=== PATIENT | male | born 1995 | race Caucasian/White ===

== ENCOUNTER 2024-11-07 15:26 | Emergency (ER) | payer OTHER, SELFPAY ==
[2024-11-07 15:31] VITALS: BP 120/80; PULSE 68; RESP 16; TEMP 37.1; O2SAT 98; BMI 32.6
--- NOTE | 2024-11-07 16:08 | CRLHL7_ITS ---
For Patients: As a result of the Cures Act, medical imaging exams and procedure reports are released immediately into your electronic medical record. You may view this report before your referring provider. If you have questions, please contact your health care provider. INDICATION: Injury/trauma TECHNIQUE: Two views of the right forearm COMPARISON: None. FINDINGS: No acute fracture or dislocation. Joint spaces are normal-appearing. IMPRESSION: No acute osseous abnormality. Dictated by Maurizio Gutierrez MD @ 11/07/2024 4:33:07 PM (Electronically Signed)
--- NOTE | 2024-11-07 16:09 | CRLHL7_ITS ---
For Patients: As a result of the Cures Act, medical imaging exams and procedure reports are released immediately into your electronic medical record. You may view this report before your referring provider. If you have questions, please contact your health care provider. INDICATION: Fall. Moderate injury. TECHNIQUE: CT of the cervical spine without contrast. Coronal and sagittal reformats are included. COMPARISON: None. FINDINGS: Fractures and other acute findings: None. Hardware: None. Spinal alignment: Within normal limits. Significant cervical spondylosis: Within normal limits. Paraspinal soft tissues and imaged lungs: Within normal limits. IMPRESSION: 1. No acute fracture or traumatic malalignment of the cervical spine. Please note that all CT scans at this facility use dose modulation, iterative reconstruction, and/or weight-based dosing when appropriate to reduce radiation dose to as low as reasonably achievable. Dictated by Segundo Lancaster MD @ 11/07/2024 4:26:42 PM (Electronically Signed)
--- OUTSIDE RECORDS SUMMARY | 2024-11-07 16:30 | XMS_ITS | Clinical Summary ---
Author Organization [facility] Address [address] [place] [id number] Care Team Providers Care Suede Cleaner Name Role Phone Pcp, No Primary Care Provider Unavailabl e Allergies No known active allergies Medications imiquimod (ALDARA) 5 % creamIndication s:Genital warts Apply 1 Packet topically to affected area(s) every Monday, Monday and Monday. Apply at bedtime and leave on skin for 8 hrs. Use up to 16w 12 Packet 3 Active Active Problems No known active problems Social History Tobacco Use Types Packs/Day Years Used Date Smoking Tobacco: Never Passive Smoke Exposure: Never Smokeless Tobacco: Never Tobacco Cessation:Counseling Given: Not Answered Alcohol Use Standard Drinks/Week Comments Yes 0 (1 standard drink = 0.6 oz pur e alcohol) occasional Social Connections Answer Date Recorded Do you often feel lonely or isolated from those around you? 0 03/26/2024 Financial Resource Strain Answer Date R ecorded Difficulty of Paying Living Expenses 3 03/26/2024 Difficulty of Paying Living Expenses Not on file 03/26/2024 Food Insecurity Answer Date Recorded Do you worry your food will run out before you are able to buy more? 1 03/26/2024 Transportation Needs Answer Date Record ed Does lack of transportation keep you from medica l appointments? 1 03/26/2024 Does lack of transportation keep you from work, meetings or getting things that you need? 1 03/26/2024 Housing Stability Answer Date Recorded What is your housing situation today? 1 03/26/2024 Utilities Answer Date Recorded Do you have trouble paying f or utilities (for example, heat, electricity, water, phone)? 1 03/26/2024 Sex and Gender Information Value Date Recorded Sex Assigned at Not on file Legal Sex Male 12:54 PM DERMATOLOGY SALES REPRESENTATIVE Gender Identity Not on file Sexual Orientation Not on file Obstetrics History Last Filed Vital Signs Vital Sign Reading Time Taken Comments Blood Pressure 118/82 03/26/2024 2:09 PM DERMATOLOGY SALES REPRESENTATIVE Pulse 63 03/26/2024 2:09 PM DERMATOLOGY SALES REPRESENTATIVE Temperature - - Respiratory Rate - - Oxygen Saturation 98% 03/26/2024 2:09 PM DERMATOLOGY SALES REPRESENTATIVE Inhaled Oxygen Concentration - - Weight 91.2 kg (201 lb 1.6 oz) 03/26/2024 2:09 P M DERMATOLOGY SALES REPRESENTATIVE Height 171 cm (5' 7.32) 03/26/2024 2:09 PM DERMATOLOGY SALES REPRESENTATIVE Body Mass Index 31.2 03/26/2024 2:09 PM DERMATOLOGY SALES REPRESENTATIVE Plan of Treatment Health Maintenance Due Date Last Done Comments Tetanus booster 08/30/2006 Depression screening for age 12+ 2007 Hepatitis B series for 19+ ( 1 of 3 - 19+ 3-dose series) 08/30/2014 HPV series for age 9-45 (1 - 3-dose SCDM series) 08/30/2022 COVID-19 vaccine series () 10/21/2024 Influenza Vaccine (#1) 2024 BMI (ht and wt on same day) for age 18+ 03/26/2025 03/26/2024 RSV vaccine for adults or (1 - 1-dose 75+ series) 08/30/2070 HIV for age 15-65 Completed 03/26/2024 Hepatitis C screening for ag e 18-79 Completed 03/26/2024 Pneumococcal series for age 6-49 Aged Out No longer eligible based on patient's age to complete this topic Procedures Procedure Name Priority Date/Time Associated Diagnosis Comments ANTI HIV 1/2 Routine 03/26/2024 2:27 PM DERMATOLOGY SALES REPRESENTATIVE Screen for STD (sexually transmitted disease) ANTI HCV Routine 03/26/2024 2:27 PM DERMATOLOGY SALES REPRESENTATIVE Screen for STD (sexually transmitted disease) from Last 3 Months or Most Recently Relevant to Health Maintenance Results * ANTI HCV [70855.2] (03/26/2024 2:27 PM DERMATOLOGY SALES REPRESENTATIVE) HEPATITIS C ANTIBODY NON-REACTI VE NON-REACT K[facility] Comment: HCV antibody was non-reactive. There is no laboratory evidence of HCV infection. In most cases, no further action is required. However, if recent HCV exposure is suspected, a test for HCV RNA (test code 18220) is suggested. For additional information please refer to http://[facility]/faq/DMW23u5 (This link is being provided for informational/ educational purposes only.) Blood BLOOD SPECIMEN / Unknown 03/26/2024 2:27 PM DERMATOLOGY SALES REPRESENTATIVE 03/26/2024 2:28 PM DERMATOLOGY SALES REPRESENTATIVE Sherry Reyna MD SEND OUTS Final R esult [employer] [facility] [address] [place] [address], [facility] [address] [place] [address] * ANTI HIV 1/2 [94663.0] (03/26/2024 2:27 PM DERMATOLOGY SALES REPRESENTATIVE) [facility] HIV AG/AB, 4TH GEN NON-REACT KOKO NON-REACT KOKO [facility] Comment: HIV-1 antigen and HIV-1/HIV-2 antibodies were not detected. There is no laboratory evidence of HIV infection. PLEASE NOTE: This information has been disclosed to you from records whose confidentiality may be protected by state law. If your state requires such protection, then the state law prohibits you from making any further disclosure of the information without the specific written consent of the person to whom it pertains, or as otherwise permitted by law. A general authorization for the release of medical or other information is NOT sufficient for this purpose. For additional information please refer to http://[facility]/faq/CWV498 (This link is being provided for informational/ educational purposes only.) The performance of this assay has not been clinically validated in patients less than 2 years old. Blood BLOOD SPECIMEN / Unknown 03/26/2024 2:27 PM DERMATOLOGY SALES REPRESENTATIVE 03/26/2024 2:28 PM DERMATOLOGY SALES REPRESENTATIVE Sherry Reyna MD SEND OUTS Final R esult [employer] [address] [place] [address], [facility] [address] [place] [address] from Last 3 Months or Most Recently Relevant to Health Maintenance Care Teams Suede Cleaner Relationship Specialty Start Date End Date Pcp, No . PCP - General 03/26/24
--- NOTE | 2024-11-07 17:17 | ED.GENADULT ---
HPI - General Adult General Date Seen: 11/07/24 Chief complaint: Neck Injury/Pain Stated complaint: Neck, shoulder injury--ladder fell Time Seen by Provider: 11/07/24 16:08 History of Present Illness HPI narrative: patient is a 29-year-old here with a friend after an injury at work. He does not speak Uzbek but his friend speaks very well and they declined an event marketing assistant. She is helping with communication. He had of 40 ft ladder fall on him at work, this landed on his neck and back and he has some pain in the right side of his neck. He also hurt his arm trying to block the ladder and has pain kind of and the entire arm but mostly in the forearm. There is some swelling there as well. No loss of consciousness or other complaints. No numbness or loss of function. Related Data Home Medications ?Medication ?Instructions ?Recorded ?Confirmed No Known Home Medications 11/07/24 11/07/24 Allergies Allergy/AdvReac Type Severity Reaction Status Date / Time No Known Drug Allergies Allergy Verified 11/07/24 15:30 Review of Systems Status of ROS: Reports: 6 or more systems reviewed and unremarkable except as noted in History and below Exam Narrative: Exam Narrative: Vital signs normal In general, alert, well-appearing young man. He has a cervical collar in place. Head: Normocephalic, atraumatic. ENT: No facial trauma. Neck: No midline tenderness. He has tenderness in the musculature all along the right side into the trapezius. Heart: Regular rate and rhythm. No chest trauma. Lungs: Clear, breath sounds equal. Extremities: Examination of the right upper extremity shows bruising and a mild hematoma over the forearm, tenderness in this area. No bony deformity, no tenderness of the wrist or elbow. Distal CMS intact. Skin: Warm dry well perfused. Neurologic: He is alert, conversant, ambulatory without difficulty. Strength is 5 of 5 in bilateral upper and lower extremities. Sensation intact to light touch. Const: Vital Signs, click to edit/add: Vital Signs - 24 hr 11/07/24 15:31 Temperature 98.8 F Pulse Rate [Pulse Oximeter] 68 Respiratory Rate 16 Blood Pressure [Le ft Upper Arm] 120/80 Pulse Oximetry 98 Oxygen Delivery Me thod Room Air Course Course ED Course: Patient had 50 mg of IV Toradol for pain control. He had a CT scan of the cervical spine. Radiology read is reviewed. They note no acute findings such as fracture dislocation. I reviewed his forearm x-rays, these with negative for fracture to me and Radiology likewise read some negative. I removed the collar, he does not have any midline tenderness and I think injuries are soft tissue. No concerning neurologic findings. Will prescribed Toradol and Flexeril for home, I gave him the next few days off of work. Reviewed that he should be improving over the next week or so and if not should be seen again. discussed with primary care if he feels he needs more time off of work. Return any time for acute worsening or new symptoms. Vital Signs Vital signs: Initial Vital Signs Temperature 98.8 F 11/07/24 15:31 Temperature Source Temporal Artery Scan 11/07/24 15:31 Pulse Rate 68 11/07/24 15:31 Respiratory Rate 16 11/07/24 15:31 Blood Pressure 120/80 11/07/24 15:31 Blood Pressure Mean 93 11/07/24 15:31 Blood Pressure Position Sitting 11/07/24 15:31 Pulse Oximetry 98 11/07/24 15:31 Oxygen Delivery Method Room Air 11/07/24 15:31 Vital Signs Temperature 98.8 F 11/07/24 15:31 Pulse Rate 68 11/07/24 15:31 Respiratory Rate 16 11/07/24 15:31 Blood Pressure 120/80 11/07/24 15:31 Pulse Oximetry 98 11/07/24 15:31 Oxygen Delivery Method Room Air 11/07/24 15:31 Temperature 98.8 F 11/07/24 15:31 Pulse Rate 68 11/07/24 15:31 Respiratory Rate 16 11/07/24 15:31 Blood Pressure 120/80 11/07/24 15:31 Pulse Oximetry 98 11/07/24 15:31 Oxygen Delivery Method Room Air 11/07/24 15:31 Medications Administered Medications: Discontinued Medications Generic Name Dose Route Start Last Admin Trade Name Freq PRN Reason Stop Dose Admin Ketorolac Tromethamine 15 mg 11/07/24 16:08 11/07/24 16:46 Ketorolac 15 Mg/Ml Inj IVP 11/07/24 16:09 15 mg ONCE ONE Administration Medical Decision Making Imaging Data Cervical CT: Attestation: I have reviewed the pertinent imaging results. Radiologist's impression: Patient: Omar العلي MR#: [id number] : 1995 Acct:[id number] Loc: ED Service Date: 11/07/24 Attending : Ordering Physician: Hazel Roman M.D. Date of Service: 11/07/24 Procedure(s): CT cervical spine wo con Accession Number(s): [id number] cc: Hazel Roman M.D.~ For Patients: As a result of the Cures Act, medical imaging exams and procedure reports are released immediately into your electronic medical record. You may view this report before your referring provider. If you have questions, please contact your health care provider. INDICATION: Fall. Moderate injury. TECHNIQUE: CT of the cervical spine without contrast. Coronal and sagittal reformats are included. COMPARISON: None. FINDINGS: Fractures and other acute findings: None. Hardware: None. Spinal alignment: Within normal limits. Significant cervical spondylosis: Within normal limits. Paraspinal soft tissues and imaged lungs: Within normal limits. IMPRESSION: 1. No acute fracture or traumatic malalignment of the cervical spine. Please note that all CT scans at this facility use dose modulation, iterative reconstruction, and/or weight-based dosing when appropriate to reduce radiation dose to as low as reasonably achievable. Dictated by Segundo Lancaster MD @ 11/07/2024 4:26:42 PM right forearm x-ray: Attestation: I have reviewed the pertinent imaging results. Radiologist's impression: Patient: Omar العلي MR#: [id number] : 1995 Acct:[id number] Loc: ED Service Date: 11/07/24 Attending : Ordering Physician: Hazel Roman M.D. Date of Service: 11/07/24 Procedure(s): XR forearm RT 2V Accession Number(s): [id number] cc: Hazel Roman M.D.; Provider,Not a Local~ For Patients: As a result of the s Act, medical imaging exams and procedure reports are released immediately into your electronic medical record. You may view this report before your referring provider. If you have questions, please contact your health care provider. INDICATION: Injury/trauma TECHNIQUE: Two views of the right forearm COMPARISON: None. FINDINGS: No acute fracture or dislocation. Joint spaces are normal-appearing. IMPRESSION: No acute osseous abnormality. Dictated by Maurizio Gutierrez MD @ 11/07/2024 4:33:07 PM Discharge Plan Discharge Clinical Impression: Strain of neck muscle, Contusion of forearm, right Patient Disposition: Home, Self-Care Condition: Improved Instructions: Contusion in Adults (ED), Cervical Sprain (ED) Additional Instructions: Toradol as needed over the next few days. You can use a muscle relaxer particularly at night. Ice liberally over the next couple days to help with swelling and pain. You should be improving over the next week, if not you should be seen by primary care. Will have you off of work until Monday. If you feel at that time you are not able to return to work safely, please discuss with primary care. Prescriptions: No Action No Known Home Medications Follow Up/Referrals: Provider,Not a Local [Primary Care Provider, Family Practice] Stand Alone Forms: MyHealth Info Instructions
[2024-11-07 17:27] VITALS: BP 120/75; PULSE 56; RESP 16; O2SAT 97
== END 2024-11-07 17:37 | disposition home or self-care (01) ==
PROVIDERS: Emergency Provider Emergency Medicine
DX: S16.1XXA Strain of muscle, fascia and tendon at neck level, initial encounter (principal); S50.11XA Contusion of right forearm, initial encounter; W11.XXXA Fall on and from ladder, initial encounter; Y99.0 Civilian activity done for income or pay
CPT/HCPCS: 72125; 73090; 96374; 99284; J1885

== ENCOUNTER 2025-01-14 16:03 | Emergency (ER) | payer OTHER, SELFPAY ==
--- OUTSIDE RECORDS SUMMARY | 2025-01-14 16:05 | XMS_ITS | Clinical Summary ---
Author Organization [facility] Address [address] [place] [address] Care Team Providers Care Speech Therapy Assistant Name Role Phone Pcp, No Primary Care [...] on file Legal Sex Male 12:54 PM BINDER ROLLER Gender Identity Not on file Sexual Orientation Not on file Obstetrics History Last Filed Vital Signs Vital Sign Reading Time Taken Comments Blood Pressure 118/82 03/26/2024 2:09 PM BINDER ROLLER Pulse 63 03/26/2024 2:09 PM BINDER ROLLER Temperature - - Respiratory Rate - - Oxygen Saturation 98% 03/26/2024 2:09 PM BINDER ROLLER Inhaled Oxygen Concentration - - Weight 91.2 kg (201 lb 1.6 oz) 03/26/2024 2:09 P M BINDER ROLLER Height 171 cm (5' 7.32) 03/26/2024 2:09 PM BINDER ROLLER Body Mass Index 31.2 03/26/2024 2:09 PM BINDER ROLLER Plan of Treatment Health Maintenance Due Date Last Done Comments Tetanus booster 08/30/2006 Depression screening for age 12+ 2007 Hepatitis B series for 19+ ( 1 of 3 - 19+ 3-dose series) 08/30/2014 HPV series for age 9-45 (1 - 3-dose SCDM series) 08/30/2022 Influenza Vaccine (#1) 2024 BMI (ht and [...] ANTI HIV 1/2 Routine 03/26/2024 2:27 PM BINDER ROLLER Screen for STD (sexually transmitted disease) ANTI HCV Routine 03/26/2024 2:27 PM BINDER ROLLER Screen for STD (sexually transmitted disease) from Last 3 Months or Most Recently Relevant to Health Maintenance Results * ANTI HCV [59414.2] (03/26/2024 2:27 PM BINDER ROLLER) HEPATITIS C ANTIBODY NON-REACTI VE NON-REACT KOK[facility] [employer] Comment: HCV antibody was non-reactive. There is no laboratory evidence of HCV infection. In most cases, no further action is required. However, if recent HCV exposure is suspected, a test for HCV RNA (test code 13980) is suggested. For additional information please refer to http://[employer]/faq/OWJ97b9 (This link is being provided for informational/ educational purposes only.) Blood BLOOD SPECIMEN / Unknown 03/26/2024 2:27 PM BINDER ROLLER 03/26/2024 2:28 PM BINDER ROLLER Sherry Reyna MD SEND OUTS Final R esult Performing Organization Address [facility] de Phone Number [employer] [facility] [address] [place] [phone], [facility] [address] [place] [phone] * ANTI HIV 1/2 [12053.0] (03/26/2024 2:27 PM BINDER ROLLER) [facility] HIV AG/AB, 4TH GEN NON-REACT KOKO NON-REACT KOKO [facility] Comment: HIV-1 antigen and HIV-1/HIV-2 antibodies were [...] purpose. For additional information please refer to http://[employer]/faq/GVQ951 (This link is being provided for informational/ educational purposes only.) The performance of this assay has not been clinically validated in patients less than 2 years old. Blood BLOOD SPECIMEN / Unknown 03/26/2024 2:27 PM BINDER ROLLER 03/26/2024 2:28 PM BINDER ROLLER Sherry Reyna MD SEND OUTS Final R esult Performing Organization Address [facility] Co de Phone Number [employer] [facility] [address] [email or web address] [address], [facility] [address] [place] [address] from Last 3 Months or Most Recently Relevant to Health Maintenance Care Teams Speech Therapy Assistant Relationship Specialty Start Date End Date Pcp, No . PCP - General 03/26/24
[2025-01-14 16:14] VITALS: BP 131/83; PULSE 63; RESP 20; TEMP 36.6; O2SAT 98; BMI 33.1
--- NOTE | 2025-01-14 18:04 | ED_ITS ---
HPI - Wound/Laceration General Date Seen: 01/14/25 Chief Complaint: Laceration/Wound Stated Complaint: stabbed self in leg Time Seen by Provider: 01/14/25 17:33 Source: patient and flight data technician Mode of arrival: ambulatory Limitations: no limitations History of Present Illness HPI narrative: Patient is a 29-year-old male presenting to emergency department for laceration to his left thigh. He states he had a cooking knife in a vague when he pushed against his thigh via excellent and cut his thigh. This occurred around 15:45. Denies any other injuries. No other concerns noted at this time. States he saw the tip of the blade. It was not broken off. Related Data Home Medications ?Medication ?Instructions ?Recorded ?Confirmed No Known Home Medications 11/07/2410/21 Allergies Allergy/AdvReac Type Severity Reaction Status Date / Time No Known Drug Allergies Allergy Verified 11/07/24 15:30 Review of Systems Narrative: Pertinent systems reviewed and were negative unless stated in HPI PFSH PFSH Social History Smoking Status: Never smoker Do you use any of these nicotine containing products: None How often do you have a drink containing alcohol: never AUDIT-C Alcohol total score: 0 Non-prescribed substance use: denies use Exam Narrative: Exam Narrative: Const: Well-nourished, Well-developed, in mild distress Eyes: PERRL, no conjunctival injection, and symmetrical lids HENT: Atraumatic external nose and ears. Moist mucous membranes. MSK:Extremities w/o deformity, Normal Active ROM Skin: Warm, Dry. 2 cm laceration noted in the right thigh. No signs of muscular or vascular injury. Neuro: Normal Muscle tone, No focal neurological deficits. Psych: Awake, Alert, & Oriented x3. Appropriate mood and affect. Const: Vital Signs, click to edit/add: Vital Signs - 24 hr 01/14/25 16:14 Temperature 97.8 F Pulse Rate [Pulse Oximeter] 63 Respiratory Rate 20 Blood Pressure [Ri ght Upper Arm] 131/83 Pulse Oximetry 98 Oxygen Delivery Me thod Room Air Course Vital Signs Vital signs: Initial Vital Signs Temperature 97.8 F 01/14/25 16:14 Temperature Source Temporal Artery Scan 01/14/25 16:14 Pulse Rate 63 01/14/25 16:14 Respiratory Rate 20 01/14/25 16:14 Blood Pressure 131/83 01/14/25 16:14 Blood Pressure Mean 99 01/14/25 16:14 Blood Pressure Position Sitting 01/14/25 16:14 Pulse Oximetry 98 01/14/25 16:14 Oxygen Delivery Method Room Air 01/14/25 16:14 Vital Signs Temperature 97.8 F 01/14/25 16:14 Pulse Rate 63 01/14/25 16:14 Respiratory Rate 20 01/14/25 16:14 Blood Pressure 131/83 01/14/25 16:14 Pulse Oximetry 98 01/14/25 16:14 Oxygen Delivery Method Room Air 01/14/25 16:14 Temperature 97.8 F 01/14/25 16:14 Pulse Rate 63 01/14/25 16:14 Respiratory Rate 20 01/14/25 16:14 Blood Pressure 131/83 01/14/25 16:14 Pulse Oximetry 98 01/14/25 16:14 Oxygen Delivery Method Room Air 01/14/25 16:14 MDM - Wound/Laceration MDM Narrative Medical decision making narrative: Patient is a 29-year-old male presenting to the emergency department for laceration to his right thigh. See procedure note. As he states the tip of the blade did not break I do not believe imaging is necessary. He is doing well after laceration repair. He is unsure when his last tetanus is. Will update. He is safe for discharge. Discharge Plan Discharge Clinical Impression: Laceration Patient Disposition: Home, Self-Care Condition: Improved Instructions: Laceration (DC) Additional Instructions: Follow-up with your primary care provider or urgent care in the next 7 days to have the 3 sutures removed. For next 6 months, once sutures are removed, whenever you go outside put a dab of sunscreen over the laceration site to improve scar appearance. Topical antibiotics are not necessary at this time. Patient can shower but do not submerge the laceration until sutures are removed Prescriptions: No Action No Known Home Medications Follow Up/Referrals: Provider,Not a Local [Primary Care Provider, Family Practice] Stand Alone Forms: MyHealth Info Instructions Procedures Laceration Right thigh: Name of person performing procedure: Jag Thakur Site: lower extremity Side (If applicable): right Size (cm): 2 Description: linear Depth: simple, single layer Local Anesthetic: lidocaine 1% Amount of anesthesia used (mL): 5 Pre-repair: wound explored, irrigated extensively and deep structures intact Skin layer closed with: nylon Size (cm): 4-0 Number of sutures: 3 Conclusion: patient tolerated procedure
[2025-01-14] MEDS: TETANUS/DIPHTH/PERTUSSIS 0.5 ML SYRINGE IM (18:14)
[2025-01-14] MEDS: LIDOCAINE 1% 5 ml (pf) 5 ML VIAL INJECTION (18:15)
== END 2025-01-14 18:24 | disposition home or self-care (01) ==
PROVIDERS: Emergency Provider Student in an Organized Health Care Education/Training Program
DX: S71.111A Laceration without foreign body, right thigh, initial encounter (principal); W26.0XXA Contact with knife, initial encounter; Z23 Encounter for immunization
CPT/HCPCS: 12001; 90471; 90715; 99283